=== PATIENT | female | born 1980 | race Hispanic/Latino ===

== ENCOUNTER 2017-10-10 03:33 | Emergency (ER) | payer OTHER ==
[2017-10-10 04:28] VITALS: BP 111/75; PULSE 64; RESP 16; TEMP 97.8; O2SAT 97
[2017-10-10] MEDS ORDERED: Sodium Chloride 0.9% 1,000 ML IV STA (04:44)
--- NOTE | 2017-10-10 04:58 | ED PDOC ---
HPI: General Adult Chief Complaint (Provider): headache <Sultan Angeline - Last Filed: 10/10/17 06:40> <Jasper Rajput - Last Filed: 10/10/17 07:31> Time Seen by Provider: 10/10/17 04:20 Chief Complaint (Nursing): Cough, Cold, Congestion Additional Complaint(s): 37 yo female pmhx migraine presents to ED with c/o frontal headache and pressure behind the eyes that started last night preceded by fever, cough,nasal congestion since 10/07/17. Pt reports last fever was 2 days ago. Pt reports her headache is 7/10, worse with noise and bright light associated with nausea. Pt took Nyquil with minimal relief. Pt states her migraine headache were worse in the past. Has sick contact at home. Denies neck stiffness, current fever, blurry vision or focal neurologic deficit. Denies chest pain, dyspnea or complaints. PMD: Dr. Lackey in OR (Sultan Angeline) Supervising Attending Note - Attestation: I have personally seen and examined this patient.: Yes I have fully participated in the care of the patient.: Yes I have reviewed all pertinent clinical information, including history, physical exam and plan: Yes <Jasper Rajput - Last Filed: 10/10/17 07:31> Past Medical History - Medical History PMH: Migraine - Surgical History Surgical History: Hernia Repair Other surgeries: hysterectomy - Family History Family History: States: No Known Family Hx - Social History Current smoker - smoking cessation education provided: No Alcohol: None Drugs: Denies <Sultan Angeline - Last Filed: 10/10/17 06:40> <Jasper Rajput - Last Filed: 10/10/17 07:31> Vital Signs: Last Vital Signs Temp 97.8 F 10/10/17 04:27 Pulse 64 10/10/17 04:27 Resp 16 10/10/17 04:27 BP 111/75 10/10/17 04:27 Pulse Ox 97 10/10/17 06:43 - Allergies Allergies/Adverse Reactions: Allergies Allergy/AdvReac Type Severity Reaction Status Date / Time No Known Allergies Allergy Verified 10/10/17 04:28 Review of Systems Constitutional: Negative for: Chills Eyes: Negative for: Vision Change ENT: Positive for: Nose Congestion. Negative for: Ear Pain Cardiovascular: Negative for: Chest Pain, Palpitations, Light Headedness Respiratory: Negative for: Shortness of Breath Gastrointestinal: Positive for: Nausea. Negative for: Vomiting, Abdominal Pain Genitourinary Female: Negative for: Dysuria Musculoskeletal: Negative for: Neck Pain Skin: Negative for: Rash Neurological: Negative for: Numbness, Change in Speech, Dizziness <MabenSultan - Last Filed: 10/10/17 06:40> Physical Exam - Physical Exam Appears: Positive for: Non-toxic, No Acute Distress Eye Exam: Positive for: EOMI, PERRL. Negative for: Nystagmus ENT: Positive for: Normal ENT Inspection Neck: Positive for: Normal, Supple Cardiovascular/Chest: Positive for: Regular Rate, Rhythm Respiratory: Positive for: Normal Breath Sounds. Negative for: Crackles, Wheezing Gastrointestinal/Abdominal: Positive for: Normal Exam, Bowel Sounds, Soft. Negative for: Tenderness Extremity: Positive for: Normal ROM Neurologic/Psych: Positive for: Alert, freelance programmer/app developer II-XII, Oriented, Other (No meningismus). Negative for: Motor/Sensory Deficits, Cerebellar Tests, Aphasia, Facial Droop <MabenMarcFernley - Last Filed: 10/10/17 06:40> - ECG O2 Sat by Pulse Oximetry: 97 <MabenMarcFernley - Last Filed: 10/10/17 06:40> <Jasper Rajptu - Last Filed: 10/10/17 07:31> - Progress ED Course And Treament: Assessment: 37 yo female pmhx migraine presents to ED w/ complaints of headache and nausea since yesterday associated cough, nasal congestion and resolved fever. Plan: Toradol 30 mg IVP Reglan 10 mg ivp NS 0.9% 1000 cc iv bolus Rapid influenza test re-evaluate Case d/w ED attending Dr. Rajput Re-evaluation time: 6:20 am on 10/10/17 Pt reports her headache and nausea has subsided with medications and IV fluids. Pt is influenza A positive but symptoms started >72 hours prior, hence not a candidate for tamiflu. Pt is stable to discharge home with close f/u with PMD. Advised to f/u with PMD in 2-3 days if symptoms do not improve. ED precaution given. Pt is in agreement with plan. Case d/w ED attending Dr. Rajput (Sultan Angeline) Disposition - Disposition Disposition Time: 06:40 <Sultan Angeline - Last Filed: 10/10/17 06:40> <Jasper Rajput - Last Filed: 10/10/17 07:31> - Clinical Impression Clinical Impression: Influenza, Headache - Disposition Referrals: Mar[facility] Holloway [Outside] Condition: IMPROVED Instructions: Influenza (ED) Forms: [employer] (Vietnamese)
== END 2017-10-10 06:45 | disposition home or self-care (01) ==
LOC: H.ER 03:33
DX: J09.X2 Influenza due to identified novel influenza A virus with other respiratory manifestations (principal); R51 Headache
CPT/HCPCS: 87804; 96374; 99282; J1885; J2765; J7040